=== PATIENT | female | born 2000 | race Caucasian/White ===

== ENCOUNTER 2023-07-04 01:29 | Emergency (ER) | payer BC ==
[~2023-07-04] VITALS: Ht 160 cm; Wt 131.5 kg
[2023-07-04 01:50] VITALS: BP_SYST 130; PULSE 73; RESP 16; TEMP 97.9; O2SAT 98
[2023-07-04] MEDS ORDERED: NACL 0.9% 1,000 ML IV ONE ×2 (02:00→04:15)
[2023-07-04] MEDS ORDERED: MORPHINE 2 MG/ML INJ. SYRINGE IVP ONE (02:00)
[2023-07-04] MEDS ORDERED: ONDANSETRON HCL 4 MG/2 ML VIAL IVP ONE (02:00)
[2023-07-04 02:47] LABS: BASOPHILS # (AUTO) 0.1 K/uL (0.0-0.2); BASOPHILS % (AUTO) 0.4 % (0.0-2.0); EOSINOPHILS % (AUTO) 0.1 % (0.0-4.0); HEMATOCRIT 43.7 % (36-48); HEMOGLOBIN 14.6 g/dL (12.0-16.0); LYMPHOCYTES # (AUTO) 2.3 K/uL (1.0-5.5); LYMPHOCYTES % (AUTO) 15.1 % (20.5-51.5); MEAN CORPUSCULAR HEMOGLOBIN 27 pg (27-31); MEAN CORPUSCULAR HGB CONC 33 % (32-36); MEAN CORPUSCULAR VOLUME 82 fL (79.0-98.0); MONOCYTES # (AUTO) 0.4 K/uL (0.0-1.0); MONOCYTES % (AUTO) 2.7 % (1.7-9.3); NEUTROPHILS # (AUTO) 12.5 K/uL (1.8-7.7); NEUTROPHILS % (AUTO) 81.7 % (40.0-70.0); PLATELET COUNT (AUTO) 344 K/uL (130-430); RED BLOOD CELL COUNT(AUTO) 5.34 MIL/uL (4.2-6.2); RED CELL DISTRIBUTION WIDTH 13.9 % (9.0-15.0); WHITE BLOOD COUNT (AUTO) 15.3 K/uL (4.8-10.8)
[2023-07-04 02:48] LABS: CALCIUM 9.2 mg/dL (8.4-11.0); CREATININE 1.05 mg/dL (0.55-1.30); POTASSIUM 3.9 mmol/L (3.5-5.1)
[2023-07-04 02:52] LABS: ALBUMIN 3.9 g/dL (3.4-4.8); TOTAL BILIRUBIN 0.5 mg/dL (0.0-1.0); TOTAL PROTEIN, SERUM 8.5 g/dL (6.4-8.3)
[2023-07-04 03:28] LABS: CLARITY/URINE CLEAR (CLEAR); COLOR,URINE YELLOW (YELLOW)
[2023-07-04 03:29] LABS: BILIRUBIN,URINE 1+ (NEGATIVE); BLOOD, URINE NEGATIVE (NEGATIVE); GLUCOSE,URINE NEGATIVE (NEGATIVE); KETONES,URINE NEGATIVE (NEGATIVE); PROTEIN URINE 1+ (NEGATIVE)
[2023-07-04 03:30] LABS: LEUKOCYTE ESTERASE ,URINE NEGATIVE (NEGATIVE); NITRITE, URINE NEGATIVE (NEGATIVE); UROBILINOGEN,URINE 0.2 (0.2-1.0)
[2023-07-04 03:47] LABS: BACTERIA,URINE RARE /HPF (None Seen)
[2023-07-04] MEDS ORDERED: DICY10CA13 PO (05:51)
[2023-07-04 06:19] VITALS: BP_SYST 128; PULSE 57; RESP 16; TEMP 98.2; O2SAT 95
== END 2023-07-04 06:19 | disposition home or self-care (01) ==
LOC: SED 01:29
DX: K52.9 Noninfective gastroenteritis and colitis, unspecified (principal); R10.84 Generalized abdominal pain; R11.2 Nausea with vomiting, unspecified; Z79.899 Other long term (current) drug therapy
CPT/HCPCS: 99285; 74176; 96374; 96361; 96375; 80053; 81000; 83690; 85025; 87040; 36415; 76376; 81025; 83605; J2405; J2270; J7030

== ENCOUNTER 2023-08-14 16:08 | Emergency (ER) | payer BC ==
[~2023-08-14] VITALS: Ht 165.1 cm; Wt 131.5 kg
[~2023-08-14 16:08] MED LIST: DICY-14 PO
[2023-08-14 16:15] VITALS: BP_SYST 138; PULSE 65; RESP 20; TEMP 98.3; O2SAT 99
[2023-08-14] MEDS ORDERED: HALOPERIDOL LACTATE 5 MG/ML VIAL IM ONE (16:30)
[2023-08-14 17:17] LABS: BILIRUBIN,URINE NEGATIVE (NEGATIVE); CLARITY/URINE SL CLOUDY (CLEAR); COLOR,URINE YELLOW (YELLOW); GLUCOSE,URINE NEGATIVE (NEGATIVE); KETONES,URINE 3+ (NEGATIVE); LEUKOCYTE ESTERASE ,URINE NEGATIVE (NEGATIVE); NITRITE, URINE NEGATIVE (NEGATIVE); PROTEIN URINE TRACE (NEGATIVE); UROBILINOGEN,URINE 0.2 (0.2-1.0)
[2023-08-14 17:17] LABS: BASOPHILS % (AUTO) 0.1 % (0.0-2.0); EOSINOPHILS % (AUTO) 0.1 % (0.0-4.0); HEMATOCRIT 41.3 % (36-48); HEMOGLOBIN 13.7 g/dL (12.0-16.0); LYMPHOCYTES # (AUTO) 1.2 K/uL (1.0-5.5); LYMPHOCYTES % (AUTO) 5.6 % (20.5-51.5); MEAN CORPUSCULAR HEMOGLOBIN 28 pg (27-31); MEAN CORPUSCULAR HGB CONC 33 % (32-36); MEAN CORPUSCULAR VOLUME 83 fL (79.0-98.0); MONOCYTES # (AUTO) 0.3 K/uL (0.0-1.0); MONOCYTES % (AUTO) 1.6 % (1.7-9.3); NEUTROPHILS # (AUTO) 19.6 K/uL (1.8-7.7); NEUTROPHILS % (AUTO) 92.6 % (40.0-70.0); PLATELET COUNT (AUTO) 285 K/uL (130-430); RED BLOOD CELL COUNT(AUTO) 4.99 MIL/uL (4.2-6.2); RED CELL DISTRIBUTION WIDTH 13.6 % (9.0-15.0); WHITE BLOOD COUNT (AUTO) 21.2 K/uL (4.8-10.8)
[2023-08-14 17:29] LABS: BLOOD, URINE TRACE (NEGATIVE)
[2023-08-14 17:30] LABS: SERUM HCG (QUALITATIVE) NEGATIVE (NEGATIVE)
[2023-08-14 17:31] LABS: INR 1.1 (0.8-1.2); PROTHROMBIN TIME 11.1 SECS (9.5-12.5)
[2023-08-14 17:37] LABS: ALANINE AMINOTRANSFERASE 31 U/L (12-78); ALBUMIN 3.4 g/dL (3.4-4.8); AMYLASE 38 U/L (0-100); ASPARTATE AMINOTRANSFERASE 16 U/L (10-37); CALCIUM 8.2 mg/dL (8.4-11.0); CREATININE 0.84 mg/dL (0.55-1.30); GFR AFRICAN AMERICAN 109 mL/min (>90); GLUCOSE 138 mg/dL (74-106); LIPASE 29 U/L (73-393); TOTAL BILIRUBIN 0.5 mg/dL (0.0-1.0); TOTAL PROTEIN, SERUM 7.5 g/dL (6.4-8.3); UREA NITROGEN, BLOOD 11 mg/dL (8-21)
[2023-08-14 17:45] LABS: ANION GAP 11 (5-15); CARBON DIOXIDE 23 mmol/L (23-29); CHLORIDE 103 mmol/L (98-107); POTASSIUM 3.6 mmol/L (3.5-5.1); SODIUM SERUM 137 mmol/L (136-145)
[2023-08-14 17:46] LABS: GFR NON AFRICAN-AMERICAN 90 mL/min (>90)
[2023-08-14 17:52] LABS: ACETONE, SERUM NEGATIVE (NEGATIVE)
[2023-08-14 17:54] LABS: BACTERIA,URINE FEW /HPF (None Seen); MUCUS,URINE 3+ /LPF (None Seen); RBC,URINE 0-3 /HPF (0-3); URINE AMORPHOUS PHOSPHATES 3+ /HPF (None Seen)
[2023-08-14] MEDS ORDERED: MORPHINE 2 MG/ML INJ. SYRINGE IM ONE (18:30)
[2023-08-14] MEDS ORDERED: ONDANSETRON HCL 4 MG/2 ML VIAL IVP ONE (19:30)
[2023-08-14] MEDS ORDERED: ONDA-8 TL (20:49)
[2023-08-14] MEDS ORDERED: CEPH-548 PO (20:49)
[2023-08-14 21:02] VITALS: BP_SYST 127; PULSE 64; RESP 18; TEMP 98.3; O2SAT 99
== END 2023-08-14 21:02 | disposition home or self-care (01) ==
LOC: SED 16:08
DX: N39.0 Urinary tract infection, site not specified (principal); K52.9 Noninfective gastroenteritis and colitis, unspecified; R11.10 Vomiting, unspecified; F12.90 Cannabis use, unspecified, uncomplicated; Z79.899 Other long term (current) drug therapy
CPT/HCPCS: 99285; 74176; 96374; 80053; 81000; 82009; 82150; 82962; 84703; 83690; 85025; 85610; 85730; 36415; 76376; 81025; 96372; 83605; 82397; J1630; J2405; J2270